=== PATIENT | male | born 1985 | race American Indian/Alaskan Native ===

== ENCOUNTER 2017-03-13 20:23 | Emergency (ER) | payer SELFPAY ==
[2017-03-13 22:01] LABS: Basophils % (Auto) 0.7 % (0.0-1.8); Hemoglobin 14.4 gm/dl (11.8-15.2); Mean Corpuscular HGB Conc 34 % (32-34); Mean Corpuscular Hemoglobin 31 pg (28-32); Mean Corpuscular Volume 91 fl (84-94); Platelet Count 198 K/mm3 (140-440); Red Cell Distribution Width 12.7 % (13.2-15.2); White Blood Count 8.9 K/mm3 (4.5-11.0)
[2017-03-13 22:13] LABS: Alanine Aminotransferase 73 units/L (7-56); Albumin 4.4 g/dL (3.9-5); Albumin/Globulin Ratio 1.3 %; Alkaline Phosphatase 42 units/L (35-129); Anion Gap 15 mmol/L; Blood Urea Nitrogen 11 mg/dL (9-20); Calcium 9.3 mg/dL (8.4-10.2); Carbon Dioxide 27 mmol/L (22-30); Chloride 97.3 mmol/L (98-107); Glucose 94 mg/dL (75-100); Lipase 48 units/L (13-60); Potassium 4.4 mmol/L (3.6-5.0); Sodium 135 mmol/L (137-145); Total Protein 7.8 g/dL (6.3-8.2)
--- NOTE | 2017-03-13 22:27 | Cat Scan Report ---
FINAL REPORT EXAM: CT HEAD/BRAIN WO CON HISTORY: Headache and dizziness after a Fall TECHNIQUE: Standard unenhanced CT of the head at 5.0 millimeter axial increments. PRIORS: None. FINDINGS: The ventricular system is normal in size and configuration. There is no evidence for parenchymal volume loss. There is no evidence for mass lesion, mass effect, midline shift, acute intracranial hemorrhage, or acute ischemia/ infarction. No evidence for acute skull fracture is seen. No abnormality in the overlying scalp soft tissues is seen. Visualized paranasal sinuses demonstrates mucosal thickening in the right maxillary sinus. IMPRESSION: No acute intracranial process noted.
--- NOTE | 2017-03-13 22:36 | Cat Scan Report ---
FINAL REPORT EXAM: CT CERVICAL SPINE WO CON HISTORY: Headache and dizziness after Fall TECHNIQUE: Standard CT cervical spine obtained at 1.25 millimeter axial increments. Coronal and sagittal reconstruction was also performed. PRIORS: None. FINDINGS: The vertebral bodies are intact. There is no evidence for acute fracture. There is no evidence for paravertebral soft tissue swelling. Alignment is maintained. IMPRESSION: Negative CT of the cervical spine.
[2017-03-13] MEDS ORDERED: ZOFRAN IV ONE (23:43)
[2017-03-13] MEDS ORDERED: NACL 0.9% 1000 ML 1,000 ML IV ONE (23:43)
[2017-03-13] MEDS ORDERED: PEPCID IV ONE (23:43)
[2017-03-13] MEDS ORDERED: BENTYL PO ONE (23:44)
[2017-03-13] MEDS ORDERED: CARAFATE PO ONE (23:44)
--- NOTE | 2017-03-13 23:45 | Emergency Department Report ---
ED General Adult HPI - General Chief complaint: Fall Stated complaint: ABDOMINAL/BACK PAIN Time Seen by Provider: 03/13/17 23:29 Source: patient Mode of arrival: Ambulatory Limitations: No Limitations - History of Present Illness Initial comments: This is a 32-year-old male, the patient is previously unknown to this provider. The patient does not have a local primary care doctor, and he denies chronic medical conditions. Patient had a mechanical fall off a ladder Wednesday afternoon at 3:00 PM. He reports hitting his head very quickly and then landing on his back. He indicated to the triage nurse that he blacked out for one second after falling, however to me he denies that. His main complaint to me is diffuse abdominal pain and back pain. The pain is achy and sharp, and is "all over." He reports diarrhea, denies irritative and obstructive urinary symptoms, chest pain or shortness of breath, nausea. He currently denies headache and neck pain, weakness, numbness, shortness of breath. He denies testicular pain. -: Gradual Location: back, abdomen Consistency: constant Improves with: rest Worsens with: movement Associated Symptoms: malaise. denies: confusion, chest pain, cough, diaphoresis , loss of appetite, shortness of breath, syncope, weakness - Related Data Previous Rx's Medication Instructions Recorded Last Taken Type Dicyclomine [Bentyl] 10 mg PO QID PRN #20 capsule 03/14/17 Unknown Rx Famotidine [Pepcid] 20 mg PO QDAY #30 tablet 03/14/17 Unknown Rx Metoclopramide [Reglan] 10 mg PO QID PRN #30 tablet 03/14/17 Unknown Rx Allergies Allergy/AdvReac Type Severity Reaction Status Date / Time No Known Allergies Allergy Unverified 03/13/17 21:05 ED Review of Systems ROS: Stated complaint: ABDOMINAL/BACK PAIN Other details as noted in HPI Constitutional: denies: fever Eyes: denies: eye discharge ENT: denies: epistaxis Respiratory: denies: cough Cardiovascular: denies: chest pain Gastrointestinal: abdominal pain, diarrhea Genitourinary: denies: urgency, dysuria, testicular pain Musculoskeletal: back pain Skin: denies: lesions Neurological: denies: weakness ED Past Medical Hx - Past Medical History Previous Medical History?: No - Surgical History Past Surgical History?: No - Social History Smoking Status: Never Smoker - Medications Home Medications: Home Medications Medication Instructions Recorded Confirmed Last Taken Type Dicyclomine [Bentyl] 10 mg PO QID PRN #20 capsule 03/14/17 Unknown Rx Famotidine [Pepcid] 20 mg PO QDAY #30 tablet 03/14/17 Unknown Rx Metoclopramide [Reglan] 10 mg PO QID PRN #30 tablet 03/14/17 Unknown Rx ED Physical Exam - General Limitations: No Limitations General appearance: alert, in no apparent distress - Head Head exam: Present: atraumatic, normocephalic - Eye Eye exam: Present: normal appearance, PERRL, EOMI, other (visual acuity intact to finger counting, color perception, reading at a close distance). Absent: nystagmus - ENT ENT exam: Present: normal exam, normal orophraynx, mucous membranes moist, normal external ear exam - Neck Neck exam: Present: normal inspection, full ROM. Absent: tenderness, meningismus - Respiratory Respiratory exam: Present: normal lung sounds bilaterally. Absent: respiratory distress, wheezes, rales, rhonchi, stridor, chest wall tenderness, accessory muscle use, decreased breath sounds, prolonged expiratory - Cardiovascular Cardiovascular Exam: Present: regular rate, normal rhythm, normal heart sounds. Absent: bradycardia, tachycardia, irregular rhythm, systolic murmur, diastolic murmur, rubs, gallop - GI/Abdominal GI/Abdominal exam: Present: soft, tenderness, normal bowel sounds, other (mild diffuse abdominal tenderness, no rebound, guarding or peritoneal signs). Absent : distended, guarding, rebound, rigid, pulsatile mass - Rectal Rectal exam: Present: deferred - exam: Present: other (there is no testicular tenderness. There is normal testicular lie bilaterally. There is normal cremasteric reflex bilaterally.). Absent: normal inspection, testicular tenderness - Extremities Exam Extremities exam: Present: normal inspection, full ROM, normal capillary refill , other (there is a superficial right upper extremity abrasion. No laceration.) . Absent: pedal edema, joint swelling, calf tenderness - Back Exam Back exam: Present: normal inspection, full ROM, paraspinal tenderness - Neurological Exam Neurological exam: Present: alert, oriented X3, normal gait, other (Extraocular movements intact. Tongue midline. No facial droop. Facial sensation intact to light touch in the V1, V2, V3 distribution bilaterally. 5 and 5 strength in 4 extremities.. Sensation is intact to light touch in 4 extremities.). Absent : motor sensory deficit - Psychiatric Psychiatric exam: Present: normal affect, normal mood - Skin Skin exam: Present: warm, dry, intact, normal color. Absent: rash ED Course Vital Signs 03/13/17 03/13/17 03/13/17 21:02 21:06 23:15 Temperature 98.6 F 98.6 F Pulse Rate 62 64 Respiratory 18 20 Rate Blood Pressure 138/108 138/108 Blood Pressure [Left] O2 Sat by Pulse 99 100 100 Oximetry 03/13/17 03/13/17 03/13/17 23:26 23:29 23:30 Temperature 98.3 F Pulse Rate 59 L Respiratory 16 17 Rate Blood Pressure 131/91 Blood Pressure 138/95 [Left] O2 Sat by Pulse 99 99 100 Oximetry 03/14/17 03/14/17 03/14/17 00:07 00:30 03:00 Temperature 98.6 F Pulse Rate 66 Respiratory 17 Rate Blood Pressure 131/91 135/85 Blood Pressure 128/87 [Left] O2 Sat by Pulse 100 100 100 Oximetry - Reevaluation(s) Reevaluation #1: 03/14/17 02:26 Patient feeling improved, no nausea or vomiting this time. CT scan results are still pending. Care is transferred to Dr. Ahsan Nelson, Who will follow-up on CT scan, disposition as per CT scan. ED Medical Decision Making - Lab Data Result diagrams: 03/13/17 21:41 03/13/17 21:41 Vital Signs 03/13/17 03/13/17 03/13/17 21:02 21:06 23:26 Temperature 98.6 F 98.6 F Pulse Rate 62 64 Respiratory 18 20 16 Rate Blood Pressure 138/108 138/108 Blood Pressure [Left] O2 Sat by Pulse 99 100 99 Oximetry 03/13/17 23:29 Temperature 98.3 F Pulse Rate 59 L Respiratory 17 Rate Blood Pressure Blood Pressure 138/95 [Left] O2 Sat by Pulse 99 Oximetry Lab Results 03/13/17 03/13/17 03/13/17 Range/Units 21:41 21:41 21:41 WBC 8.9 (4.5-11.0) K/mm3 RBC 4.60 (3.65-5.03) M/mm3 Hgb 14.4 (11.8-15.2) gm/dl Hct 42.0 (35.5-45.6) % MCV 91 (84-94) fl MCH 31 (28-32) pg MCHC 34 (32-34) % RDW 12.7 L (13.2-15.2) % Plt Count 198 (140-440) K/mm3 Lymph % (Auto) 29.3 (13.4-35.0) % [place] % (Auto) 8.5 H (0.0-7.3) % Eos % (Auto) 6.0 H (0.0-4.3) % Baso % (Auto) 0.7 (0.0-1.8) % Lymph # 2.6 (1.2-5.4) K/mm3 [place] # 0.8 (0.0-0.8) K/mm3 Eos # 0.5 H (0.0-0.4) K/mm3 Baso # 0.1 (0.0-0.1) K/mm3 Seg Neutrophils % 55.5 (40.0-70.0) % Seg Neutrophils # 5.0 (1.8-7.7) K/mm3 Sodium 135 L (137-145) mmol/L Potassium 4.4 (3.6-5.0) mmol/L Chloride 97.3 L (98-107) mmol/L Carbon Dioxide 27 (22-30) mmol/L Anion Gap 15 mmol/L BUN 11 (9-20) mg/dL Creatinine 1.1 (0.8-1.5) mg/dL Estimated GFR > 60 ml/min BUN/Creatinine Ratio 10.00 % Glucose 94 (75-100) mg/dL Calcium 9.3 (8.4-10.2) mg/dL Total Bilirubin 0.50 (0.1-1.2) mg/dL AST 57 H (5-40) units/L ALT 73 H (7-56) units/L Alkaline Phosphatase 42 (35-129) units/L Troponin T < 0.010 (0.00-0.029) ng/mL Total Protein 7.8 (6.3-8.2) g/dL Albumin 4.4 (3.9-5) g/dL Albumin/Globulin Ratio 1.3 % Lipase 48 (13-60) units/L Urine Color (Yellow) Urine Turbidity (Clear) Urine pH (5.0-7.0) Ur Specific [place] (1.003-1.030) Urine Protein (Negative) mg/dL Urine Glucose (UA) (Negative) mg/dL Urine Ketones (Negative) mg/dL Urine Blood (Negative) Urine Nitrite (Negative) Urine Bilirubin (Negative) Urine Urobilinogen (<2.0) mg/dL Ur Leukocyte Esterase (Negative) Urine WBC (Auto) (0.0-6.0) /HPF Urine RBC (Auto) (0.0-6.0) /HPF Urine Mucus /HPF 03/13/17 Range/Units 23:49 WBC (4.5-11.0) K/mm3 RBC (3.65-5.03) M/mm3 Hgb (11.8-15.2) gm/dl Hct (35.5-45.6) % MCV (84-94) fl MCH (28-32) pg MCHC (32-34) % RDW (13.2-15.2) % Plt Count (140-440) K/mm3 Lymph % (Auto) (13.4-35.0) % [place] % (Auto) (0.0-7.3) % Eos % (Auto) (0.0-4.3) % Baso % (Auto) (0.0-1.8) % Lymph # (1.2-5.4) K/mm3 [place] # (0.0-0.8) K/mm3 Eos # (0.0-0.4) K/mm3 Baso # (0.0-0.1) K/mm3 Seg Neutrophils % (40.0-70.0) % Seg Neutrophils # (1.8-7.7) K/mm3 Sodium (137-145) mmol/L Potassium (3.6-5.0) mmol/L Chloride (98-107) mmol/L Carbon Dioxide (22-30) mmol/L Anion Gap mmol/L BUN (9-20) mg/dL Creatinine (0.8-1.5) mg/dL Estimated GFR ml/min BUN/Creatinine Ratio % Glucose (75-100) mg/dL Calcium (8.4-10.2) mg/dL Total Bilirubin (0.1-1.2) mg/dL AST (5-40) units/L ALT (7-56) units/L Alkaline Phosphatase (35-129) units/L Troponin T (0.00-0.029) ng/mL Total Protein (6.3-8.2) g/dL Albumin (3.9-5) g/dL Albumin/Globulin Ratio % Lipase (13-60) units/L Urine Color Yellow (Yellow) Urine Turbidity Clear (Clear) Urine pH 6.0 (5.0-7.0) Ur Specific [place] 1.021 (1.003-1.030) Urine Protein <15 mg/dl (Negative) mg/dL Urine Glucose (UA) Neg (Negative) mg/dL Urine Ketones Neg (Negative) mg/dL Urine Blood Neg (Negative) Urine Nitrite Neg (Negative) Urine Bilirubin Neg (Negative) Urine Urobilinogen 2.0 (<2.0) mg/dL Ur Leukocyte Esterase Neg (Negative) Urine WBC (Auto) 1.0 (0.0-6.0) /HPF Urine RBC (Auto) 2.0 (0.0-6.0) /HPF Urine Mucus Few /HPF - EKG Data -: EKG Interpreted by Ma EKG shows normal: sinus rhythm Rate: bradycardia - EKG Data When compared to previous EKG there are: previous EKG unavailable 03/14/17 00:27 Sinus bradycardia, 56 bpm, normal intervals, normal axis, not morphologically consistent with STEMI, no chest pain - Radiology Data Radiology results: report reviewed, image reviewed Noncontrast CT scan of the brain and cervical spine are negative - Medical Decision Making Differential diagnosis: Concussion, appendicitis, colitis, diverticulitis, renal colic, inflammatory bowel disease Assessment and plan: 32-year-old male status post mild somatic mechanism 2 days ago, clinically sober at this time, GCS of 15, NIH score is 0. CT of the brain and cervical spine ordered prior to my evaluation, they are negative, patient clinically sober at this time. Next Patient is clinically sober at this time. The cervical spine is cleared through nexus and latvian c spine rule Patient incidentally found to have diffuse abdominal tenderness, a CT scan of the abdomen and pelvis is pending. Patient is able to add, subtract, multiply, divide, immediate and short-term recall intact. Critical care attestation.: If time is entered above; I have spent that time in minutes in the direct care of this critically ill patient, excluding procedure time. ED Disposition Clinical Impression: Abdominal pain, Fall Disposition: DC-01 TO HOME OR SELFCARE Is pt being admited?: No Does the pt Need Aspirin: No Condition: Stable Instructions: Concussion (ED), Abdominal Pain (ED) Additional Instructions: Take the pain medication, nausea medication as directed. Follow up with the primary care doctor within the next 2 weeks. Return to the ER right away with new pain, worsened pain, migration of pain, fevers, chills, lethargy, irritability, projectile vomiting, change in mental status, inability to tolerate liquid feeds. Prescriptions: Dicyclomine [Bentyl] 10 mg PO QID PRN #20 capsule PRN Reason: Pain Famotidine [Pepcid] 20 mg PO QDAY #30 tablet Metoclopramide [Reglan] 10 mg PO QID PRN #30 tablet PRN Reason: Nausea Referrals: PRIMARY CARE, [Primary Care Provider] - 3-5 Days KEE PIKE MD [Referring] - 3-5 Days JUSTIN PIKE MD [Staff Physician] - 3-5 Days
[2017-03-14 00:03] LABS: Bilirubin,Urine NEG (Negative); Blood,Urine NEG (Negative); Ketones,Urine NEG (Negative); Leukocyte Esterase,Urine NEG (Negative); Mucus,Urine FEW /HPF; Nitrite,Urine NEG (Negative); Protein,Urine <15 mg/dL mg/dL (Negative)
[2017-03-14] MEDS ORDERED: NACL ONE (00:47)
--- NOTE | 2017-03-14 02:41 | Cat Scan Report ---
FINAL REPORT PROCEDURE: CT ABDOMEN PELVIS W CON TECHNIQUE: Computerized axial tomography of the abdomen and pelvis was performed after the IV injection of iodinated nonionic contrast. HISTORY: lower abd pain COMPARISON: No prior studies are available for comparison. FINDINGS: Visualized lower thorax: No significant abnormality. Liver: Normal size and attenuation. Spleen: Normal size and attenuation. Gallbladder and biliary system: Normal. Pancreas: Normal. Adrenals: Normal. Kidneys: There are no kidney stones or ureteral stones. There is no hydronephrosis per. GI tract: There is no bowel obstruction, colitis or enteritis. The appendix is normal.. Lymph nodes and mesentery: Normal. Vasculature: Normal. Bladder: Normal. Reproductive organs: Normal. Peritoneum: There is no ascites, free air, abscess or adenopathy.. Musculoskeletal structures: No significant abnormality. Other: None. IMPRESSION: There is no acute intra-abdominal abnormality per
[2017-03-14 03:19] VITALS: BP 128/87
== END 2017-03-14 03:00 | disposition home or self-care (01) ==
LOC: ED 20:23
DX: R10.84 Generalized abdominal pain (principal); R53.81 Other malaise
CPT/HCPCS: 36415; 70450; 72125; 74177; 80053; 81001; 83690; 84484; 85025; 93005; 93010; 96361; 96374; 96375; 99284; J2405; J7030; Q9967

== ENCOUNTER 2018-10-10 16:47 | Emergency (ER) | payer OTHER ==
[2018-10-10 17:47] VITALS: BP 141/101
[2018-10-10 18:14] LABS: Basophils # (Auto) 0.1 K/mm3 (0.0-0.1); Basophils % (Auto) 0.9 % (0.0-1.8); Eosinophils # (Auto) 0.4 K/mm3 (0.0-0.4); Eosinophils % (Auto) 5.5 % (0.0-4.3); Hematocrit 43.4 % (35.5-45.6); Hemoglobin 15.3 gm/dl (11.8-15.2); Lymphocytes # (Auto) 2.2 K/mm3 (1.2-5.4); Lymphocytes % (Auto) 34.2 % (13.4-35.0); Mean Corpuscular HGB Conc 35 % (32-34); Mean Corpuscular Volume 91 fl (84-94); Monocytes # (Auto) 0.5 K/mm3 (0.0-0.8); Platelet Count 243 K/mm3 (140-440); Red Blood Count 4.76 M/mm3 (3.65-5.03); Red Cell Distribution Width 13.2 % (13.2-15.2)
[2018-10-10 18:27] LABS: BUN/Creatinine Ratio 9; Blood Urea Nitrogen 9 mg/dL (9-20); Calcium 9.6 mg/dL (8.4-10.2); Hemolysis Index 24
--- NOTE | 2018-10-10 18:28 | Emergency Department Report ---
Blank Doc - Documentation Documentation: 33 y o m jhony presents to ed s/p fall off a one story building roof x 9 am this am states eric/bback pain and neck pain, brief loc ct scan, basic labs [facility] eval
[2018-10-10 18:40] LABS: INR 0.89 (0.87-1.13)
--- NOTE | 2018-10-10 21:17 | Cat Scan Report ---
PROCEDURE: CT HEAD/BRAIN WO CON TECHNIQUE: Computerized tomography of the head was performed without contrast material. CT DOSE LENGTH PRODUCT: 920.5 mGycm HISTORY: pain/loc COMPARISONS: February 27, 2018 . FINDINGS: Skull and scalp: Normal . Paranasal sinuses: Normal . Ventricles and subarachnoid spaces: Normal . Cerebrum: No evidence of hemorrhage, acute infarction or mass . Cerebellum and brainstem: No evidence of hemorrhage, acute infarction or mass . Vasculature: Normal . Other: None . ASPECTS: 10 IMPRESSION: Normal Examination . This document is electronically signed by Dae Rodríguez MD., October 10 2018 09:15:54 PM ET
--- NOTE | 2018-10-10 22:51 | Cat Scan Report ---
PROCEDURE: CT CERVICAL SPINE WO CON TECHNIQUE: Computerized tomography of the cervical spine was performed from the skull base to T1 wit hout contrast material. CT DOSE LENGTH PRODUCT: 833.4 mGycm HISTORY: pain/fall COMPARISONS: None . FINDINGS: Alignment is satisfactory. There is no acute fracture. Odontoid process is intact. C1-2: No significant abnormality . C2-3: No significant abnormality . C3-4: No significant abnormality . C4-5: No significant abnormality . C5-6: No significant abnormality . C6-7: No significant abnormality . C7-T1: No significant abnormality . Fractures: None . Other: No additional findings . IMPRESSION: No significant abnormality . This document is electronically signed by Finn Aguilar MD., October 10 2018 10:49:57 PM ET
--- NOTE | 2018-10-12 18:43 | Cat Scan Report ---
PROCEDURE: CT LUMBAR SPINE WO CON TECHNIQUE: Standard unenhanced CT of lumbar spine was performed at 2.5 mm axial increments. Galeas l and sagittal reconstruction was also performed. CT DOSE LENGTH PRODUCT: 1391.7 mGycm HISTORY: back pain/injury COMPARISONS: CT A/P 02/27/2018 FINDINGS: Counting reference: Lumbosacral junction. For the purposes of this report, L4-L5 is considered the le charley of the iliac crest. Bone marrow/ Fracture: No evidence for acute or chronic fracture is seen. No evidence of a lytic or b lastic process in the visualized spine. Alignment: There is a subtle retrolisthesis of L5 on S1 which is stable. T12-L1: Canal and foramina are patent. L1-L2: Canal and foramina are patent. L2-L3: Canal and foramina are patent. L3-L4: Canal and foramina are patent. L4-L5: Canal and foramina are patent. L5-S1: Canal and foramina are patent. Paraspinal soft tissues: The paraspinal soft tissues show no evidence for paravertebral hematoma or s oft tissue mass. Sacrum and iliac wings: Visualized portions of the sacrum and iliac wings appear intact without fract ure. The presacral soft tissues are normal in appearance. IMPRESSION: 1. No evidence of acute fracture. 2. Subtle Retrolisthesis of L5 on S1, unchanged This document is electronically signed by Nanda Kruger MD., October 12 2018 06:41:31 PM ET
== END 2018-10-10 22:41 | disposition left against medical advice (07) ==
LOC: ED 16:47
DX: R51 Headache (principal); M54.2 Cervicalgia; M54.9 Dorsalgia, unspecified; R11.10 Vomiting, unspecified; R55 Syncope and collapse; W18.30XA Fall on same level, unspecified, initial encounter; Y93.89 Activity, other specified; Y92.89 Other specified places as the place of occurrence of the external cause; Y99.8 Other external cause status
CPT/HCPCS: 36415; 70450; 72125; 72131; 80048; 85025; 85610; 85730; 99283